=== PATIENT | female | born 1995 | race Caucasian/White ===

== ENCOUNTER 2024-05-15 18:03 | Emergency (ER) | payer OTHER, SELFPAY ==
[2024-05-15 18:04] VITALS: BP 144/76; PULSE 65; RESP 18; TEMP 37; O2SAT 97; BMI 31.9
--- NOTE | 2024-05-15 18:04 | HMH.EDGENADL ---
Discharge Plan Disposition Patient Disposition: Home, Self-Care Condition: Good Referrals Follow up/Referrals: Provider,Referral, [Primary Care Provider] - See instructions Activity Restrictions/Add. Instructions Additional Instructions/Restrictions: Sinew taking the Magic mouthwash 15 mL every 6 hours as needed. Continue taking Tylenol Motrin. If you have no improvement or worsening signs or symptoms follow-up with your PCP or return to the ER as needed. Clinical Impressions Clinical Impression: Pharyngitis Qualifiers: Pharyngitis/tonsillitis etiology: unspecified etiology Qualified Code(s): J02.9 - Acute pharyngitis, unspecified Stand Alone Forms Stand Alone Forms: Work/School Release Print Language Print Language: Japanese Discharge ED Provider: Anthony Cabrera General Adult HPI <AV Majano - Last Filed: 05/15/24 19:53> General Chief complaint: Upper Respiratory Infection Stated complaint: sore throat fatigue n/v sores in throat Time Seen by Provider: 05/15/24 18:04 History of Present Illness HPI narrative: Patient presents for evaluation of pharyngitis. Patient states that she has had 3 days of sore throat. She saw blisters and was concerned that she might have strep. Patient is status post tonsillectomy. She also reports congestion and a dry cough but no subjective fever chills hemoptysis hematochezia melena. Related Data Allergies Allergy/AdvReac Type Severity Reaction Status Date / Time No Known Allergies Allergy Verified 05/15/24 18:16 PFSH <AV Majano - Last Filed: 05/15/24 19:53> [facility] Disclaimer: The information contained in this section may have been updated after the patient was seen, as this information can be updated by other users. Social History (Updated 05/15/24 @ 19:53 by AV Majano) Smoking Status: Never smoker alcohol intake: never current occupational status: employed Travel in the last 8 weeks: None Have you lived/traveled outside [place] in past 30 days?: No Contact w/someone who lives/traveled outside US past 30 days?: No Exposure to someone with infectious disease in past 14 days?: No Do you have a fever (greater than 100.4 F or 38 C)?: No Have you tested positive for COVID-19: No Exposed to someone with COVID-19 in past 14 days?: No Do you have a sore throat?: Yes Do you have a cough?: No Do you have any weakness?: Yes Do you have any diarrhea?: No Are you experiencing any unusual bleeding?: No Do you have any muscle aches/pain?: No Do you have any abdominal pain?: No Are you experiencing loss of taste or smell?: No <AV Majano - Last Filed: 05/15/24 19:53> ROS Obtained: Yes Systems reviewed as appropriate & no additional complaints except as documented Physical Exam <AV Majano - Last Filed: 05/15/24 19:53> General General appearance: alert and in no apparent distress Respiratory Respiratory exam: Present normal lung sounds bilaterally Cardiovascular Cardiovascular exam: Present regular rate; Absent normal rhythm Neurological Exam Neurological exam: Present alert and oriented X3 Medical Decision Making <AV Majano - Last Filed: 05/15/24 19:53> Medical Records Screening: Per USPSTF and CDC recommendations, given the prevalence of disease in our region, it is our hospital?s policy to screen for HIV and viral Hepatitis for all patients aged 18 and over and those with ongoing risk factors. Jesus Inquiry Pt receiving controlled substance: No Vital Signs: 05/15/24 18:04 05/15/24 19:05 Temperature 98.6 F 98.1 F Temperature Source Oral Oral Pulse Rate 66 Pulse Rate [Left Radial] 65 Respiratory Rate 18 16 Blood Pressure 139/74 Blood Pressure [Right Arm] 144/76 H Blood Pressure Mean [Right Arm] 98 Blood Pressure Source [Right Arm] Manual Cuff/ Doppler Blood Pressure Position Sitting Blood Pressure Position [Right Arm] Sitting 02 Sat by Pulse Oximetry 97 Oxygen Delivery Method Room Air Room Air Lab Data Lab results reviewed: Yes I reviewed the patient's lab results. Lab Results 05/15/24 18:05: SARS-CoV-2 (PCR) Not detected, Influenza Type A (PCR) Not detected, Influenza Type B (PCR) Not detected, RSV (PCR) Not detected, Rhinovirus (PCR) Not detected, Group A Strep Rapid Negative Orders (Tests/Meds): ED MEDICATIONS Discontinued Medications Generic Name Dose Route Start Last Admin Trade Name Freq PRN Reason Stop Dose Admin Acetaminophen 1,000 mg 05/15/24 18:10 05/15/24 18:19 Acetaminophen 500mg Tab PO 05/15/24 18:11 1,000 mg ONCE ONE Administration Ibuprofen 800 mg 05/15/24 18:10 05/15/24 18:19 Ibuprofen 400 Mg Tablet PO 05/15/24 18:11 800 mg ONCE ONE Administration Tetracycl/Hydrocort/Nystatin/Diphen 15 ml 05/15/24 18:11 05/15/24 18:20 Magic Mouthwash 300ml Bottle PO 05/15/24 18:12 15 ml ONCE ONE Administration ORDERS Category Date Time Status Mini Respiratory Panel Stat Lab 05/15/24 18:05 Completed Rapid Strep Scrn Group A [Strep Scrn Group A (Rapid)] Lab 05/15/24 18:05 Completed Stat Strep Screen Confirmation Stat Micro 05/15/24 18:05 Received Medical Decision Narrative: In summary patient is a 9-year-old female who presents to the emergency department for evaluation of pharyngitis. Patient is hemodynamically upon arrival, afebrile. Physical exam is remarkable for a normal-appearing posterior pharynx however patient is status post tonsillectomy. I do not notice any type of cutaneous lesions. She has no cervical lymphadenopathy. She does however have nasal congestion but no rhinorrhea. Differential diagnosis includes viral versus bacterial pharyngitis. Initial workup will be conducted with strep and mini respiratory panel. Initial interventions include Magic mouthwash Tylenol and ibuprofen. Initial workup reviewed by me shows her strep swab is negative. Upon repeat evaluation patient did have improvement after Magic mouthwash and Tylenol ibuprofen.. Given this interactive discussion of whether or not she wanted to wait for the mini respiratory panel or follow-up through the portal and via patient directed decision making and discharge she will get access to the portal and follow the results. <Anthony Cabrera MD - Last Filed: 05/15/24 19:58> Vital Signs: 05/15/24 18:04 05/15/24 19:05 Temperature 98.6 F 98.1 F Temperature Source Oral Oral Pulse Rate 66 Pulse Rate [Left Radial] 65 Respiratory Rate 18 16 Blood Pressure 139/74 Blood Pressure [Right Arm] 144/76 H Blood Pressure Mean [Right Arm] 98 Blood Pressure Source [Right Arm] Manual Cuff/ Doppler Blood Pressure Position Sitting Blood Pressure Position [Right Arm] Sitting 02 Sat by Pulse Oximetry 97 Oxygen Delivery Method Room Air Room Air Lab Data Lab Results 05/15/24 18:05: SARS-CoV-2 (PCR) Not detected, Influenza Type A (PCR) Not detected, Influenza Type B (PCR) Not detected, RSV (PCR) Not detected, Rhinovirus (PCR) Not detected, Group A Strep Rapid Negative Orders (Tests/Meds): ED MEDICATIONS Discontinued Medications Generic Name Dose Route Start Last Admin Trade Name Diya PRN Reason Stop Dose Admin Acetaminophen 1,000 mg 05/15/24 18:10 05/15/24 18:19 Acetaminophen 500mg Tab PO 05/15/24 18:11 1,000 mg ONCE ONE Administration Ibuprofen 800 mg 05/15/24 18:10 05/15/24 18:19 Ibuprofen 400 Mg Tablet PO 05/15/24 18:11 800 mg ONCE ONE Administration Tetracycl/Hydrocort/Nystatin/Diphen 15 ml 05/15/24 18:11 05/15/24 18:20 Magic Mouthwash 300ml Bottle PO 05/15/24 18:12 15 ml ONCE ONE Administration ORDERS Category Date Time Status Mini Respiratory Panel Stat Lab 05/15/24 18:05 Completed Rapid Strep Scrn Group A [Strep Scrn Group A (Rapid)] Lab 05/15/24 18:05 Completed Stat Strep Screen Confirmation Stat Micro 05/15/24 18:05 Received Medical Decision Narrative: In summary patient is a 9-year-old female who presents to the emergency department for evaluation of pharyngitis. Patient is hemodynamically upon arrival, afebrile. Physical exam is remarkable for a normal-appearing posterior pharynx however patient is status post tonsillectomy. I do not notice any type of cutaneous lesions. She has no cervical lymphadenopathy. She does however have nasal congestion but no rhinorrhea. Differential diagnosis includes viral versus bacterial pharyngitis. Initial workup will be conducted with strep and mini respiratory panel. Initial interventions include Magic mouthwash Tylenol and ibuprofen. Initial workup reviewed by me shows her strep swab is negative. Upon repeat evaluation patient did have improvement after Magic mouthwash and Tylenol ibuprofen.. Given this interactive discussion of whether or not she wanted to wait for the mini respiratory panel or follow-up through the portal and via patient directed decision making and discharge she will get access to the portal and follow the results. I was consulted by the VANIA, and we discussed the complexity of the problems being addressed. I approved the treatment and management plan for this patient's care in the Emergency Department, thus performing a substantive portion of the medical decision making. Anthony Cabrera MD Critical Care <AV Majano - Last Filed: 05/15/24 19:53> Critical Care Time Critical Care Time: No
[2024-05-15 18:17] LABS: Coronavirus 19, PCR Not Detected (NotDetected); Human Rhinovirus Not Detected (NotDetected); Influenza A, PCR Not Detected (NotDetected); Influenza B, PCR Not Detected (NotDetected); Respiratory Syncytial Virus Not Detected (NotDetected)
[2024-05-15] MEDS: IBUPROFEN 400 MG TABLET 800 MG PO (18:19)
[2024-05-15] MEDS: ACETAMINOPHEN 500MG TAB 1000 MG PO (18:19)
[2024-05-15] MEDS: MAGIC MOUTHWASH 300ML BOTTLE 15 ML PO (18:20)
[2024-05-15 18:26] LABS: Strep Scrn Group A (Rapid) Negative (Negative)
[2024-05-15 19:05] VITALS: BP 139/74; PULSE 66; RESP 16; TEMP 36.7; O2SAT 99
== END 2024-05-15 19:06 | disposition home or self-care (01) ==
PROVIDERS: Physician Assistant; Emergency Provider Emergency Medicine
DX: J02.9 Acute pharyngitis, unspecified (principal); R11.2 Nausea with vomiting, unspecified; R53.83 Other fatigue; R09.81 Nasal congestion; R05.9 Cough, unspecified; R50.9 Fever, unspecified
CPT/HCPCS: 87430; 87631; 99283

== ENCOUNTER 2024-09-16 21:41 | Emergency (ER) | payer OTHER, SELFPAY ==
[2024-09-16 21:51] VITALS: BP 150/92; PULSE 73; RESP 16; TEMP 36.7; O2SAT 97; BMI 26.4
[2024-09-16 22:00] VITALS: BP 129/78; PULSE 73; O2SAT 98
[2024-09-16 22:30] VITALS: BP 124/76; PULSE 73; O2SAT 97
--- NOTE | 2024-09-16 22:34 | HMH.EDGENADL ---
Discharge Plan Disposition Patient Disposition: Home, Self-Care Prescriptions Prescriptions: New lidocaine 4 % adhesive patch,medicated 1 patch topical DAILY Qty: 5 0RF Rx Instructions: may leave on for up to 12 hrs ibuprofen 800 mg tablet 800 mg PO TID PRN (Reason: pain) 7 Days Qty: 20 0RF prednisone 50 mg tablet 50 mg PO DAILY 5 Days Qty: 5 0RF Rx Instructions: Please begin 1 day after ED visit cyclobenzaprine 5 mg tablet 5 mg PO TID PRN (Reason: muscle spasm) 5 Days Qty: 15 0RF Referrals Follow up/Referrals: Provider,Referral, [Primary Care Provider] - See instructions Activity Restrictions/Add. Instructions Additional Instructions/Restrictions: As discussed your symptoms are consistent with sciatica and statistically most likely secondary to a herniated disc. No indication for any emergency imaging today. If you develop any bladder or bowel incontinence and urinary retention numbness between your legs paralysis of your leg fevers or other concerns you may return to the emergency department otherwise please follow-up with primary care doctor. Clinical Impressions Clinical Impression: Sciatica Instructions Patient Instructions: DI for Low Back Pain Print Language Print Language: Persian Discharge ED Provider: Loretta Reagan General Adult HPI General Chief complaint: Back Pain/Injury Stated complaint: lower back pain, legs numb Time Seen by Provider: 09/16/24 22:01 Mode of Arrival: Ambulatory Source of Information: Patient Description of Symptoms (Recalled from ER Triage Doc. by RN): Pt presents for evaluation of middle and lower back pain that started today. Pt states she she is now feeling numbness in bilateral legs and feet. PT denies any injuries. States she has a hx of a slipped disc, and does heavy lifting at work History of Present Illness HPI narrative: Patient is a 29-year-old female presenting today with back pain and tingling down her right lower extremity. She states this started earlier today no trauma associated with this. She has not had any urinary retention urinary incontinence bowel incontinence saddle anesthesia lower extremity weakness fevers history of injection drug use cancer etc. She does have a history of a known herniated disc that she had the past. Related Data Previous Rx's ?Medication ?Instructions ?Recorded cyclobenzaprine 5 mg tablet 5 mg PO TID PRN muscle spasm 5 09/16/24 days #15 tabs ibuprofen 800 mg tablet 800 mg PO TID PRN pain 7 days #20 09/16/24 tabs lidocaine 4 % topical patch 1 patch topical DAILY #5 ea 09/16/24 prednisone 50 mg tablet 50 mg PO DAILY 5 days #5 tabs 09/16/24 Allergies Allergy/AdvReac Type Severity Reaction Status Date / Time No Known Allergies Allergy Verified 05/15/24 18:16 [facility] Disclaimer: The information contained in this section may have been updated after the patient was seen, as this information can be updated by other users. Social History (Updated 05/15/24 @ 19:53 by AV Majano) Smoking Status: Never smoker alcohol intake: never current occupational status: employed Travel in the last 8 weeks?: None Have you lived/traveled outside [place] in past 30 days?: No Contact w/someone who lives/traveled outside [place] past 30 days?: No Exposure to someone with infectious disease in past 14 days?: No Do you have a fever (greater than 100.4 F or 38 C)?: No Have you tested positive for COVID-19?: No Exposed to someone with COVID-19 in past 14 days?: No Do you have a sore throat?: No Do you have a cough?: No Do you have any weakness?: No Do you have any diarrhea?: No Are you experiencing any unusual bleeding?: No Do you have any muscle aches/pain?: No Do you have any abdominal pain?: No Are you experiencing loss of taste or smell?: No ROS Obtained: Yes All systems reviewed & no additional complaints except as documented Physical Exam General General appearance: alert Respiratory Respiratory exam: Present normal lung sounds bilaterally Cardiovascular Cardiovascular exam: Present regular rate Back Exam Back exam: Present other (Bilateral lower extremity muscular strength is normal at the knee and at the ankle dorsiflexion plantarflexion flexion extension at the knee sensation is normal throughout no saddle anesthesia vascular intact); Absent tenderness Neurological Exam Neurological exam: Present alert and oriented X3 Medical Decision Making Medical Records Screening: Per USPSTF and CDC recommendations, given the prevalence of disease in our region, it is our hospital?s policy to screen for HIV and viral Hepatitis for all patients aged 18 and over and those with ongoing risk factors. Jesus Inquiry Pt receiving controlled substance: No Vital Signs: 09/16/24 21:51 09/16/24 22:00 09/16/24 22:30 Temperature 98.1 F Temperature Source Oral Pulse Rate 73 73 Pulse Rate [Right] 73 Respiratory Rate 16 Blood Pressure 129/78 124/76 Blood Pressure [Right Arm] 150/92 H Blood Pressure Mean [Right Arm] 111 Blood Pressure Source [Right Arm] Automatic Cuff Blood Pressure Position [Right Arm] Sitting 02 Sat by Pulse Oximetry 97 98 97 Oxygen Delivery Method Room Air Orders (Tests/Meds): ED MEDICATIONS Generic Name Dose Route Start Last Admin Trade Name Diya PRN Reason Stop Dose Admin Cyclobenzaprine HCl 5 mg 09/16/24 22:27 Cyclobenzaprine 10mg Tablet PO 09/16/24 22:28 ONCE ONE Ketorolac Tromethamine 30 mg 09/16/24 22:27 Ketorolac 30mg/Ml Vial IM 09/16/24 22:28 ONCE ONE Lidocaine 1 each 09/16/24 22:27 Lidocaine 5% Transdermal Patch TD 09/16/24 22:28 ONCE ONE Prednisone 60 mg 09/16/24 22:27 Prednisone 20mg Tab PO 09/16/24 22:28 ONCE ONE Medical Decision Narrative: 29-year-old with reassuring neurologic exam not concerning for any type of central compression such as cauda equina syndrome etc. She has lower back pain is radiating down primarily her right leg with some tingling she has no true sensation loss certainly no motor loss or any other neurologic findings that are concerning. No indication for any emergent MRI. I am not concerned about any bony pathology at the moment. She has no concern for surgical emergency. Symptomatic management was given to her in the emergency department in addition to prescription to be sent home with. She has been given a list of primary care doctors. She understands return precautions was discharged in stable condition. Critical Care Critical Care Time Critical Care Time: No
[2024-09-16 22:44] VITALS: BP 120/76; PULSE 65; RESP 18; TEMP 36.7; O2SAT 98
== END 2024-09-16 22:47 | disposition home or self-care (01) ==
PROVIDERS: Emergency Provider Student in an Organized Health Care Education/Training Program
DX: M54.50 Low back pain, unspecified (principal); M54.31 Sciatica, right side
CPT/HCPCS: 96372; 99283

== ENCOUNTER 2024-10-13 23:46 | Emergency (ER) | payer OTHER, SELFPAY ==
[2024-10-13 23:53] VITALS: BP 163/99; PULSE 76; RESP 20; TEMP 36.8; O2SAT 99; BMI 25.5
[2024-10-14] MEDS: LIDOCAINE 5% TRANSDERMAL PATCH 1 EACH TD (00:21)
[2024-10-14] MEDS: METHOCARBAMOL 500MG TABLET 500 MG PO (00:22)
--- NOTE | 2024-10-14 00:32 | PC.NURSE ---
outpatient order obtained and faxed at this time prior to DC
[2024-10-14 00:33] VITALS: BP 124/72; PULSE 78; RESP 16; TEMP 36.6; O2SAT 97
--- NOTE | 2024-10-14 00:57 | ED_ITS ---
Discharge Plan Disposition Patient Disposition: Home, Self-Care Condition: Good Prescriptions Prescriptions: New methocarbamol 500 mg tablet 500 mg PO TID PRN (Reason: muscle spasm) Qty: 30 0RF lidocaine 5 % adhesive patch,medicated See Rx Instructions .ROUTE .COMPLEX Qty: 15 0RF Rx Instructions: Apply to most painful area and leave on for 12 hours, remove and leave off for 12 hours before using a new patch No Action lidocaine 4 % adhesive patch,medicated 1 patch topical DAILY Qty: 5 0RF Rx Instructions: may leave on for up to 12 hrs ibuprofen 800 mg tablet 800 mg PO TID PRN (Reason: pain) 7 Days Qty: 20 0RF prednisone 50 mg tablet 50 mg PO DAILY 5 Days Qty: 5 0RF Rx Instructions: Please begin 1 day after ED visit cyclobenzaprine 5 mg tablet 5 mg PO TID PRN (Reason: muscle spasm) 5 Days Qty: 15 0RF Referrals Follow up/Referrals: Wilberto Chavez MD [Primary Care Provider, Medical] - See instructions Activity Restrictions/Add. Instructions Additional Instructions/Restrictions: You were evaluated in the ER and are appropriate for discharge at this time. Continue taking Tylenol and ibuprofen if needed for pain, do not exceed the recommended dose on the bottle. Drink water and eat a small snack each time you take these medications to avoid side effects. Use the prescribed lidocaine patch and muscle relaxer as needed. Do not drive or operate machinery after taking the methocarbamol as this medication can be sedating. You have been referred for physical therapy, they should call you for an appointment. Also follow-up with your PCP to ensure physical therapy is scheduled. Keep your appointment with your primary care doctor as scheduled on Tuesday. Return to the ER with any new, worsening, or otherwise concerning symptoms as discussed. Clinical Impressions Clinical Impression: Right sided sciatica Instructions Patient Instructions: DI for Low Back Pain Print Language Print Language: Wolof Discharge ED Provider: Dylan Beltran Adult [facility] General Chief complaint: Back Pain/Injury Stated complaint: Back pain Time Seen by Provider: 10/14/24 00:03 Mode of Arrival: Ambulatory Source of Information: Patient Description of Symptoms (Recalled from ER Triage Doc. by RN): patient c/o lower back pain. states she was here a month ago and was diagnosed with sciatica and hemorraghic disc. has not followed up with specialist yet. does have an appointment on tuesday History of Present Illness HPI narrative: 29-year-old female presents to the ER with concerns of right-sided sciatica. She states her low back pain and sciatica are worse so she came to the ER for evaluation. She admits she has not yet been seen outpatient for reevaluation but does report having an appointment on Tuesday. She states the appointment is with a PCP. Patient states she took ibuprofen a few hours prior to arrival and has not had significant improvement of symptoms yet. She states the sciatica pain is worse radiating from her low back into the right leg. She states it does not radiate as far down the right leg anymore but the pain is more intense and she has more discomfort with raising the right leg than she did in the past. She is not having any urinary or bowel incontinence, no retention, no paralysis, no saddle anesthesia. No acute traumatic injury to cause exacerbation. Patient admits that she is out of the muscle relaxer she was prescribed 1 month ago when she was in the ER and only has 1 lidocaine patch left. Patient reports she has a known bad disc. I reviewed ER note from her visit a month ago which demonstrates there were no red flag symptoms at that time. Related Data Previous Rx's ?Medication ?Instructions ?Recorded cyclobenzaprine 5 mg tablet 5 mg PO TID PRN muscle spa sm 5 09/16/24 days #15 tabs ibuprofen 800 mg tablet 800 mg PO TID PRN pain 7 day s #20 09/16/24 tabs lidocaine 4 % topical patch 1 patch topical DAILY #5 e a 09/16/24 prednisone 50 mg tablet 50 mg PO DAILY 5 days #5 tab s 09/16/24 lidocaine 5 % topical patch See Rx Instructions topica l 10/14/24 .COMPLEX #15 ea methocarbamol 500 mg tablet 500 mg PO TID PRN muscle s pasm #30 10/14/24 tabs Allergies Allergy/AdvReac Type Severity Reaction Status Date / Time No Known Allergies Allergy Verified 05/15/24 18:16 [facility] Disclaimer: The information contained in this section may have been updated after the doreen ent was seen, as this information can be updated by other users. Social History (Updated 05/15/24 @ 19:53 by AV Majano) Smoking Status: Never smoker alcohol intake: never current occupational status: employed Travel in the last 8 weeks?: None Have you lived/traveled outside US in past 30 days?: No Contact w/someone who lives/traveled outside US past 30 days?: No Exposure to someone with infectious disease in past 14 days?: No Do you have a fever (greater than 100.4 F or 38 C)?: No Have you tested positive for COVID-19?: No Exposed to someone with COVID-19 in past 14 days?: No Do you have a sore throat?: No Do you have a cough?: No Do you have any weakness?: No Do you have any diarrhea?: No Are you experiencing any unusual bleeding?: No Do you have any muscle aches/pain?: No Do you have any abdominal pain?: No Are you experiencing loss of taste or smell?: No ROS Obtained: Yes Systems reviewed as appropriate & no additional complaints except as documented Per HPI Physical Exam General General appearance: alert and in no apparent distress Head Head exam: atraumatic and normocephalic Eye Eye exam: Present PERRL and EOMI ENT ENT exam: Present mucous membranes moist Neck Neck exam: Present normal inspection and full ROM Chest Chest inspection: Present symmetric chest wall rise Respiratory Respiratory exam: Absent respiratory distress or stridor Cardiovascular Cardiovascular exam: Present regular rate and normal rhythm Extremities Exam Extremities exam: Present full ROM Back Exam Back exam: Present tenderness (generalized lumbar discomfort with palpation, no deformity or step-off) and straight leg raise (R); Absent straight leg raise (L) Neurological Exam Neurological exam: Present alert and oriented X3; Absent motor sensory deficit (Full strength and sensation in bilateral lower extremities; no saddle anesthesia) Psychiatric Psychiatric exam: Present normal affect and normal mood Skin Skin exam: Present warm and dry Medical Decision Making Medical Records Medical records reviewed: Yes I reviewed the patient's medical records. Screening: Per USPSTF and CDC recommendations, given the prevalence of disease in our region, it is our hospital?s policy to screen for HIV and viral Hepatitis for all patients aged 18 and over and those with ongoing risk factors. Jesus Inquiry Pt receiving controlled substance: No Vital Signs: 10/13/24 23:53 10/14/24 00:33 Temperature 98.2 F 97.9 F Temperature Source Oral Oral Pulse Rate 78 Pulse Rate [Left] 76 Respiratory Rate 20 16 Blood Pressure 124/72 Blood Pressure [Right Arm] 163/99 H Blood Pressure Mean [Right Arm] 120 Blood Pressure Source Automatic Cuff Blood Pressure Source [Right Arm] Automatic Cuff Blood Pressure Position Supine Blood Pressure Position [Right Arm] Sitting 02 Sat by Pulse Oximetry 99 Oxygen Delivery Method Room Air Room Air Orders (Tests/Meds): ED MEDICATIONS Discontinued Medications Generic Name Dose Route Start Last Admin Trade Name Diya PRN Reason Stop Dose Admin Lidocaine 1 each 10/14/24 00:15 10/14/24 00:21 Lidocaine 5% Transdermal Patch TD 10/14/24 00:16 1 each ONCE ONE Administration Methocarbamol 500 mg 10/14/24 00:15 10/14/24 00:22 Methocarbamol 500mg Tablet PO 10/14/24 00:16 500 mg ONCE ONE Administration Medical Decision Narrative: In summary, this 29-year-old female presents to the emergency department today with low back pain radiating to the right leg. On initial evaluation patient is hemodynamically stable, afebrile, GCS 15, neurologically intact with no localizing deficits, patient does not have any motor or sensory deficits in either lower extremity but also specifically the right leg exam is normal. Patient has diffuse lumbar discomfort with palpation but no deformity or step- off, no evidence of trauma, patient also has tenderness over the right piriformis area just posterior to the greater trochanter. No saddle anesthesia or red flag symptoms such as paralysis, saddle anesthesia, bowel or bladder retention or incontinence. Patient has previously known herniated disc which is likely causing radiculopathy, she may also have an element of piriformis syndrome. Her symptoms are consistent with sciatica. No concern for dangerous compression at this time with no red flag symptoms. No labs or imaging are indicated at this time without acute traumatic injury and chronic pain currently in exacerbation without red flag symptoms, however postvoid bladder scan was performed. This demonstrated 0 mL remaining in the bladder after urination. This is reassuring against urinary retention and further reassurance against cauda equina. Patient received methocarbamol and lidocaine patch in the ER. She had already taken NSAIDs at home. I prescribed methocarbamol and lidocaine patches for outpatient management. Patient was given instructions to not take the methocarbamol before driving or operating machinery secondary to its potential sedating effects. She has close follow-up scheduled with PCP which she was encouraged to keep. Patient was given instructions on symptomatic management, follow up instructions, and return precautions for the emergency department. Patient ind icated understanding and was discharged in stable condition. Critical Care Critical Care Time Critical Care Time: No
== END 2024-10-14 00:35 | disposition home or self-care (01) ==
PROVIDERS: Emergency Provider Emergency Medicine; PCP Pediatrics
DX: M54.31 Sciatica, right side (principal); M54.50 Low back pain, unspecified
CPT/HCPCS: 51798; 99283

== ENCOUNTER 2024-12-29 10:40 | Emergency (ER) | payer SELFPAY ==
[2024-12-29] VITALS (9 sets, daily range): BP systolic 119–141; BP diastolic 77–92; PULSE 63–80; RESP 14–19; TEMP 36.9–37; O2SAT 96–100; BMI 25.4
--- NOTE | 2024-12-29 11:55 | PC.NURSE ---
Assisted pt to the bathroom.
[2024-12-29] MEDS: LIDOCAINE 5% TRANSDERMAL PATCH 1 EACH TD (12:17)
[2024-12-29] MEDS: METHOCARBAMOL 500MG TABLET 1500 MG PO (12:18)
[2024-12-29] MEDS: KETOROLAC 30MG/ML VIAL 30 MG IV (12:18)
[2024-12-29] MEDS: ACETAMINOPHEN 500MG TAB 500 MG PO (12:18)
[2024-12-29] MEDS: METHYLPREDNISOLONE SOD SUCC 125MG VIAL 80 MG IV (12:18)
[2024-12-29 12:35] LABS: Hepatitis C Ab Qual. W/ RFX NEGATIVE (Negative)
--- NOTE | 2024-12-29 12:43 | PC.NURSE ---
bladder scan showed 1-2 mls
--- NOTE | 2024-12-29 13:34 | ED_ITS ---
Discharge Plan Disposition Patient Disposition: Home, Self-Care Condition: Good Prescriptions Prescriptions: New prednisone 20 mg tablet 20 mg PO DAILY Qty: 5 0RF methocarbamol 750 mg tablet 1,500 mg PO Q8H Qty: 42 0RF No Action lidocaine 4 % adhesive patch,medicated 1 patch topical DAILY Qty: 5 0RF Rx Instructions: may leave on for up to 12 hrs ibuprofen 800 mg tablet 800 mg PO TID PRN (Reason: pain) 7 Days Qty: 20 0RF prednisone 50 mg tablet 50 mg PO DAILY 5 Days Qty: 5 0RF Rx Instructions: Please begin 1 day after ED visit cyclobenzaprine 5 mg tablet 5 mg PO TID PRN (Reason: muscle spasm) 5 Days Qty: 15 0RF methocarbamol 500 mg tablet 500 mg PO TID PRN (Reason: muscle spasm) Qty: 30 0RF lidocaine 5 % adhesive patch,medicated See Rx Instructions .ROUTE .COMPLEX Qty: 15 0RF Rx Instructions: Apply to most painful area and leave on for 12 hours, remove and leave off for 12 hours before using a new patch Referrals Follow up/Referrals: Wilberto Chavez MD [Primary Care Provider, Medical] - See instructions Activity Restrictions/Add. 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 You can take Robaxin at home for muscle relaxation and pain control. I also want you to take Prednisone for the next 5 days. If you have any new or worsening symptoms please return. Clinical Impressions Clinical Impression: Lumbar back pain, Right sided sciatica Stand Alone Forms Stand Alone Forms: Work/School Release Print Language Print Language: Vietnamese Discharge ED Provider: Yimi Colvin Adult HPI General Chief complaint: PAIN Stated complaint: pinching, pain in back, numbness in legs Time Seen by Provider: 12/29/24 11:00 Mode of Arrival: Ambulatory Source of Information: Patient Description of Symptoms (Recalled from ER Triage Doc. by RN): pt presents to ED with c/o middle back pain, leg numbness. pt reports that pain began this am around 0430. pt reports that she was diagnosed with sciatic nerve issues approx 1 month ago in this er History of Present Illness HPI narrative: This is a 29-year-old female patient, with past medical history of right-sided sciatica, who is presented to the emergency department today for evaluation of back pain. The patient states that she has intermittent flares of her back pain and has been told in the past that her back pain is caused by bulging disc. She has never had a formal MRI and does not currently see physical therapy. She states that this morning when she woke up her back pain was more severe than usual and she was experiencing right sided radiculopathy with numbness and tingling down the posterior aspect of the leg. She has not experienced any urinary retention or urinary incontinence. She has not experienced any saddle anesthesia. She does not have any history of IV drug use and she has never been diagnosed with cancer. Related Data Previous Rx's ?Medication ?Instructions ?Recorded cyclobenzaprine 5 mg tablet 5 mg PO TID PRN muscle spa sm 5 09/16/24 days #15 tabs ibuprofen 800 mg tablet 800 mg PO TID PRN pain 7 day s #20 09/16/24 tabs lidocaine 4 % topical patch 1 patch topical DAILY #5 e a 09/16/24 prednisone 50 mg tablet 50 mg PO DAILY 5 days #5 tab s 09/16/24 lidocaine 5 % topical patch See Rx Instructions topica l 10/14/24 .COMPLEX #15 ea methocarbamol 500 mg tablet 500 mg PO TID PRN muscle s pasm #30 10/14/24 tabs methocarbamol 750 mg tablet 1,500 mg (2 x 750 mg) PO Q 8H #42 12/29/24 tabs prednisone 20 mg tablet 20 mg PO DAILY #5 tabs 12/29 Allergies Allergy/AdvReac Type Severity Reaction Status Date / Time No Known Allergies Allergy Verified 05/15/24 18:16 [facility] Disclaimer: The information contained in this section may have been updated after the patient was seen, as this information can be updated by other users. Social History Smoking Status: Current every day smoker alcohol intake: never current occupational status: employed Travel in the last 8 weeks?: None Have you lived/traveled outside US in past 30 days?: No Contact w/someone who lives/traveled outside US past 30 days?: No Exposure to someone with infectious disease in past 14 days?: No Do you have a fever (greater than 100.4 F or 38 C)?: No Have you tested positive for COVID-19?: No Exposed to someone with COVID-19 in past 14 days?: No Do you have a sore throat?: No Do you have a cough?: No Do you have any weakness?: No Do you have any diarrhea?: No Are you experiencing any unusual bleeding?: No Do you have any muscle aches/pain?: Yes Do you have any abdominal pain?: No Are you experiencing loss of taste or smell?: No ROS Obtained: Yes Systems reviewed as appropriate & no additional complaints except as documented Physical Exam General General appearance: other (See MDM) Respiratory Respiratory exam: Present other (See MDM) Cardiovascular Cardiovascular exam: Present other (See MDM) Neurological Exam Neurological exam: Present other (See MDM) Medical Decision Making Medical Records Medical records reviewed: Yes I reviewed the patient's medical records. Screening: Per USPSTF and CDC recommendations, given the prevalence of disease in our region, it is our hospital?s policy to screen for HIV and viral Hepatitis for all patients aged 18 and over and those with ongoing risk factors. Jesus Inquiry Pt receiving controlled substance: No Jesus was queried for this patient: No Vital Signs: 12/29/24 11:00 12/29/24 11:00 12/29/24 11:46 Temperature 98.6 F Temperature Source Oral Pulse Rate 72 74 Pulse Rate [Left Radial] 80 Respiratory Rate 19 Blood Pressure 130/77 129/85 Blood Pressure [Right Arm] 130/77 Blood Pressure Mean [Right Arm] 94 Blood Pressure Source Blood Pressure Position 02 Sat by Pulse Oximetry 96 96 99 Oxygen Delivery Method 12/29/24 12:39 12/29/24 12:41 12/29/24 12:45 Temperature Temperature Source Pulse Rate 65 80 75 Pulse Rate [Left Radial] Respiratory Rate Blood Pressure 141/91 H 131/89 140/88 Blood Pressure [Right Arm] Blood Pressure Mean [Right Arm] Blood Pressure Source Blood Pressure Position 02 Sat by Pulse Oximetry 97 97 98 Oxygen Delivery Method 12/29/24 12:52 12/29/24 13:00 12/29/24 13:01 Temperature Temperature Source Pulse Rate 77 67 63 Pulse Rate [Left Radial] Respiratory Rate Blood Pressure 139/92 H 119/84 131/87 Blood Pressure [Right Arm] Blood Pressure Mean [Right Arm] Blood Pressure Source Blood Pressure Position 02 Sat by Pulse Oximetry 99 100 100 Oxygen Delivery Method 12/29/24 13:34 Temperature 98.5 F Temperature Source Oral Pulse Rate 69 Pulse Rate [Left Radial] Respiratory Rate 14 Blood Pressure 140/81 Blood Pressure [Right Arm] Blood Pressure Mean [Right Arm] Blood Pressure Source Automatic Cuff Blood Pressure Position Supine 02 Sat by Pulse Oximetry Oxygen Delivery Method Room Air Lab Data Lab Results 12/29/24 10:58: HCV Ab SHIVAM w/Rflx PCR Qn Negative, HIV Ag/Ab Combo Qual Negative Orders (Tests/Meds): ED MEDICATIONS Discontinued Medications Generic Name Dose Route Start Last Admin Trade Name Freq PRN Reason Stop Dose Admin Acetaminophen 500 mg 12/29/24 11:40 12/29/24 12:18 Acetaminophen 500mg Tab PO 12/29/24 11:41 500 mg ONCE ONE Administration Ketorolac Tromethamine 30 mg 12/29/24 11:40 12/29/24 12:18 Ketorolac 30mg/Ml Vial IV 12/29/24 11:41 30 mg ONCE ONE Administration Lidocaine 1 each 12/29/24 11:40 12/29/24 12:17 Lidocaine 5% Transdermal Patch TD 12/29/24 11:41 1 each ONCE ONE Administration Methocarbamol 1,500 mg 12/29/24 11:43 12/29/24 12:18 Methocarbamol 500mg Tablet PO 12/29/24 11:44 1,500 mg ONCE ONE Administration Methylprednisolone Sodium Succinate 80 mg 12/29/24 11:40 12/29/24 12:18 Methylprednisolone Sod Succ 125mg Vial IV 12/29/24 11:41 80 mg ONCE ONE Administration ORDERS Category Date Time Status HIV Combo Stat Lab 12/29/24 10:58 Completed Hepatitis C Ab Qual. W/ RFX Stat Lab 12/29/24 10:58 Completed Medical Decision Narrative: In summary, this is a 29-year-old female patient who is presenting to the emergency department today for evaluation of acute lumbar back pain with right- sided sciatica. She has not had any injuries to the back and she denies red flag back symptoms highlighted in the HPI. On initial evaluation of the patient they were resting comfortably in no acute distress and nontoxic in appearance. They are hemodynamically stable, saturating well room air, and are neurologically intact. On physical examination of the patient she has normal sensation in all terminal nerve distributions of the bilateral lower extremities. She does not have any midline lumbar spine tenderness on exam. There is no overlying skin changes along the lower back. On straight leg raise she does have numbness and tingling that extends past the knee into the toes of the right foot when elevated past 30 degrees. Differential diagnosis includes muscle strain, disc herniation, among others. I have obtained a postvoid residual which shows 1 to 2 mL of postvoid urine in the bladder. She has normal patellar reflexes bilaterally. I do not think that she is experiencing an acute spinal cord syndrome such as cauda equina or conus medullaris syndrome at this time. Given that this pain is atraumatic and she does not have any red flag symptoms, I do not feel that she necessitates any emergent imaging while in the emergency department. Instead, we decided to treat her symptomatically for her back pain. I have administered 15 mg of Toradol, 500 g of Tylenol, 1500 mg of Robaxin, a lidocaine patch, and 80 mg of methylprednisolone IV. Patient was observed in the emergency department over the period of a couple of hours. On repeat reassessment she states that her pain is significantly improved. Given that this cocktail of medications that improved her symptoms I have prescribed prednisone 20 mg to be taken for the next 5 days as well as Robaxin 1500 mg to be taken at home. I have strongly encouraged her to follow- up with a physical therapist to assist in relief of her symptoms moving forward. She has a follow-up with a translational specialist to obtain an MRI in the outpatient setting so I have not placed a referral to any other physician services. At this time all questions have been answered and all parties are agreeable with the decision to discharge Critical Care Critical Care Time Critical Care Time: No
== END 2024-12-29 13:39 | disposition home or self-care (01) ==
PROVIDERS: Emergency Provider Student in an Organized Health Care Education/Training Program; PCP Pediatrics
DX: M54.41 Lumbago with sciatica, right side (principal)
CPT/HCPCS: 86803; 87389; 96374; 96375; 99284; J1885; J2919